=== PATIENT | female | born 1975 | race Caucasian/White ===

== ENCOUNTER 2018-09-08 11:43 | Observation (INO) ==
[2018-09-08 12:03] LABS: Hemoglobin 11.9 gm/dL (12.5-16.0); Mean Cell Volume 89.9 fl (78-100); Mean Corpuscular Hemoglobin 27.4 pg (27-31); Mean Corpuscular Hgb Conc 30.5 g/dl (32-36); Mean Platelet Volume 9.2 fl (8-12.5); Neutrophil % 81.8 % (42-75.0); Platelet Count 274 K/mm3 (150-450); Red Blood Count 4.34 M/mm3 (4.2-5.4); Red Cell Distribution Width 15.1 % (11.5-14.0); White Blood Count 12.2 K/mm3 (4.0-10.5)
--- NOTE | 2018-09-08 12:04 | ERNOTE ---
Dyspnea - General Presenting Symptoms: shortness of breath Time Seen by Provider: 09/08/18 11:43 Source: patient, longterm records Exam Limitations: no limitations - Immun/Allergies/Home Medications Allergies/Adverse Reactions: Allergies amoxicillin Allergy (Verified 09/08/18 12:10) unknown ceftriaxone [From Rocephin] Allergy (Verified 09/08/18 12:10) unknown doxycycline Allergy (Verified 09/08/18 12:10) unknown ertapenem Allergy (Verified 09/08/18 12:21) unknown iodine Allergy (Verified 09/08/18 12:10) unknown levofloxacin [From Levaquin] Allergy (Verified 09/08/18 12:10) unknown prednisone Allergy (Verified 09/08/18 12:10) unknown rifampin Allergy (Verified 09/08/18 12:10) unknown Home Medications: HOME MEDICATIONS Acetaminophen [Tylenol] 650 mg PO Q4H PRN 09/08/18 [Last Taken Unknown] Albuterol Sulfate [Albuterol Sulfate 2.5 MG/0.5ML] 1 vial INHALATION BID PRN 09/08/18 [Last Taken Unknown] Bisacodyl [Laxative Suppository] 10 mg RC DAILY PRN 09/08/18 [Last Taken Unknown] Brimonidine Tartrate [Alphagan-P 0.15% Ophthalmic Solution] 1 drp OPHTHALMIC (EYE) BID 09/08/18 [Last Taken Unknown] Calcium Carbonate [Tums] 1,000 mg PO QID PRN 09/08/18 [Last Taken Unknown] Carbamide Peroxide [Debrox] 1 drp OTIC (EAR) BID 09/08/18 [Last Taken Unknown] Cetirizine HCl [Zyrtec] 10 mg PO DAILY 09/08/18 [Last Taken Unknown] Chlorhexidine Gluconate [Periogard Oral Rinse 0.12%] 15 ml MM BID 09/08/18 [Last Taken Unknown] Famotidine [Pepcid] 20 mg PO BID 09/08/18 [Last Taken Unknown] Ferrous Sulfate [Iron] 325 mg PO DAILY 09/08/18 [Last Taken Unknown] Fluticasone Propionate [Flovent Diskus] 2 sprays INHALATION BID 09/08/18 [Last Taken Unknown] Fluticasone Propionate [Flovent Hfa] 2 puff INHALATION BID 09/08/18 [Last Taken Unknown] Latanoprost/Pf [Latanoprost 0.005% Eye Drop] 1 drp OPHTHALMIC (EYE) HS 09/08/18 [Last Taken Unknown] Montelukast Sodium [Singulair] 10 mg PO DAILY 09/08/18 [Last Taken Unknown] Pantoprazole Sodium 40 mg PO DAILY 09/08/18 [Last Taken Unknown] Pnv No.122/Iron/Folic Acid [ Multi Tablet] 1 ea PO DAILY 09/08/18 [Last Taken Unknown] Polyethylene Glycol 3350 [Miralax] 17 gm PO DAILY PRN 09/08/18 [Last Taken Unknown] Sennosides/Docusate Sodium [Senexon-S Tablet] 2 ea PO HS 09/08/18 [Last Taken Unknown] busPIRone HCL [Buspar] 10 mg PO BID 09/08/18 [Last Taken Unknown] guaiFENesin [Mucinex] 1,200 mg PO DAILY 09/08/18 [Last Taken Unknown] - History of Present Illness Narrative: Patient is a patient at the [facility], has had a trach for a couple of years after being treated for aspiration pneumonia and had been on a vent, recently weaned off. She is on 1liter O@ per [place] at night only. This morning she started to feel short of breath, CXR showed left sided chest opacification. O2sats on EMS arrival were in the low 80's. Patient states that she has slight cough " I am just trying to clear my secretions", doesn't feel short of breath anymore, denies any other symptoms, no chest pain, no URIsymptoms. Influenza at the [facility] was negative She has a h/o spina bifida Treatment [employer]: paramedics, oxygen Initiating event: Denies: upper resp illness, out of meds Frequency of episodes: Reports: occassional episodes Modifying Factors - (Improves): Reports: oxygen Associated Symptoms-Dyspnea: Denies: fever/chills, chest pain/discomfort Prior Treatment: Denies: recently seen, currently on antibiotics Review of Systems - Review of Systems Constitutional: Absent: recent illness, fever, chills ENT: Absent: nose congestion, sore throat Respiratory: Present: shortness of breath, cough Cardiology: Absent: chest pain, palpitations Gastrointestinal/Abdominal: Absent: nausea, vomiting, abdominal pain Genitourinary: Present: no symptoms reported Musculoskeletal: Absent: back pain Neurological: Absent: headache Medical History (Last Updated 09/08/18 @ 12:21 by Melody Adorno MD) Ventilator dependence (Chronic) Unspecified combined systolic (congestive) and diastolic (congestive) heart failure Anxiety Asthma Depression GERD (gastroesophageal reflux disease) Insomnia Spina bifida of lumbar region Surgical History: Surgical History (Last Reviewed 09/08/18 @ 12:21 by Melody Adorno MD) History of back surgery Onset Date: Unknown Family History: Family History (Last Reviewed 09/08/18 @ 12:09 by Vidya Stoddard RN) Other unknown Social History: Preferred Language Ghanaian (Last Updated 06/03/18 @ 10:27 by Stephy Corbett DO) No Social History Section defined Physical Exam - Physical Exam General Appearance: Present: wd/wn, alert, no apparent distress Head Exam: Present: normal inspection Ears, Nose, Throat: Present: normal pharynx Respiratory: Present: no respiratory distress, chest nontender, decreased breath sounds - severely on the left, rhonchi - few on right Cardiovascular/Chest: Present: regular rate, rhythm, no murmur Gastrointestinal/Abdominal: Present: normal bowel sounds Extremity Exam: Present: other - lower extremieties shortened and contracted Neurological Exam: Present: alert, oriented, normal mood/affect Skin Exam: Present: normal color, warm/dry Progress - Results and Orders Patient's Lab Results:: I have reviewed the patient's lab results. - Vital Signs Patient's Vital Signs:: I have reviewed the patient's vital signs. - EKG EKG #1 EKG: NSR - sinus tachycardia, other - no acute changes EKG read: Interp. by me - X-Ray X-Ray #1 X-Ray: chest - 1. Severe hypoventilatory changes.Multifocal pulmonary opacities suggestive of either atelectasis versus potential pneumonia. Interpretation: Reviewed by me - Progress/Reassessment Progress Note-Subjective: 09/08/18 13:30 discussed with aiden Cole to admit for pneumonia patient meets SIRS criteria (WBC, HR, RR), but not criteria for severe sepsis (LA nl) has multiple drug allergies, also sputum culture from 06/2018 was positive for pseudomonas, no information if patient was treated with antibiotics at that time will treat with vancomycin 09/08/18 13:46 antibiotics discussed with Virginie No (pharm) per care center patient was treated with a Zpack in June (started the same day sputum cultures were collected) hence increased risk for pseudomonas and positive pseudomonas culture per protocol patient should be treated with levaquin, aztreonam and gentamicin. As culture resistant to levaquin and patient did not tolerate it well in the past will only treat with the other two Departure Clinical Impression: Acute respiratory failure with hypoxia Pneumonia Qualifiers: Pneumonia type: due to unspecified organism Laterality: bilateral Lung location: unspecified part of lung Qualified Code(s): J18.9 - Pneumonia, unspecified organism Sepsis Qualifiers: Sepsis type: sepsis due to unspecified organism Qualified Code(s): A41.9 - Sepsis, unspecified organism - Departure Disposition: Still a patient Condition: Stable
[2018-09-08 12:22] LABS: ALT 9 U/L (19-67); AST 11 U/L (0-48); Alkaline Phosphatase * 80 U/L (50-170); Anion Gap 11.7 mmol/L (6.8-13.8); BUN/Creatinine Ratio 25.7 (9.0-21.6); Bilirubin, Total 0.3 mg/dL (0.0-1.1); Blood Urea Nitrogen 9 mg/dL (3-23); Ca. Corrected For Albumin 9.2 mg/dL (8.4-10.2); Calcium * 8.7 mg/dL (7.9-10.9); Carbon Dioxide 30.1 mmol/L (24-32.6); Chloride 106 mmol/L (97-106); Glucose * 103 mg/dL (70-110); Potassium 3.8 mmol/L (3.4-4.6); Sodium 144 mmol/L (132-142); Total Protein 6.9 gm/dL (6.2-8.2)
[2018-09-08 12:23] LABS: BNP * 321 pg/mL (5-150); Troponin I Less than 0.017 ng/mL (0.00-0.10)
[2018-09-08] MEDS ORDERED: ALBUTEROL SULFATE 2.5 MG/0.5 ML VIAL.NEB IH ONE (12:27)
[2018-09-08] MEDS: NORMAL SALINE 1,000 ML IV PRN ×2 (13:06→22:46)
[2018-09-08] MEDS ORDERED: GENTAMICIN SULFATE 80 MG in DEXTROSE 5 % IN WATER 100 ML IV ONE ×2 (13:47)
[2018-09-08] MEDS ORDERED: ACETAMINOPHEN 325 MG TABLET PO PRN (13:47)
[2018-09-08] MEDS: AZTREONAM 2 GM in DEXTROSE 5 % IN WATER 100 ML IV SCH ×4 (14:09→22:45)
[2018-09-08] MEDS ORDERED: VANCOMYCIN HCL 1 GM in DEXTROSE 5 % IN WATER 250 ML IV SCH ×2 (14:15)
[2018-09-08] MEDS ORDERED: VANCOMYCIN HCL 1.25 GM in DEXTROSE 5 % IN WATER 250 ML IV SCH ×2 (14:30)
[2018-09-08] MEDS ORDERED: DEXTROSE 5% IV ONE ×4 (14:45)
[2018-09-08] MEDS ORDERED: WATER IV ONE ×4 (14:45)
[2018-09-08] MEDS ORDERED: GENTAMICIN SULFATE IV ONE ×4 (14:45)
[2018-09-08] MEDS ORDERED: VANCOMYCIN HCL 0.75 GM in DEXTROSE 5 % IN WATER 250 ML IV SCH ×2 (15:00)
[2018-09-08] MEDS ORDERED: VANCOMYCIN HCL IV SCH ×2 (15:00)
[2018-09-08] MEDS ORDERED: WATER IV SCH ×2 (15:00)
[2018-09-08] MEDS ORDERED: DEXTROSE 5% IV SCH ×2 (15:00)
--- NOTE | 2018-09-08 16:19 | HP ---
Chief Complaint - Chief Complaint Date of Service: 09/08/18 Time of Service: 16:19 Chief Complaint: SOB History of Present Illness: Ms. French is a 42-year-old female with a past history of spina bifida resulting in her being wheelchair-bound. She is also had medical applications with her breathing, she currently has a trach in place. She presented to the ER this morning for shortness of breath which started over the last couple of days. An x-ray showed possible infiltrates better left lung versus atelectasis. She did have an elevated white count with a left shift. She was admitted to the floor for pneumonia and started on vancomycin, gentamicin, and aztreonam (due to her many allergies to different classes of antibiotics). Her vital signs have been stable but she is requiring 4 L per trach collar to maintain her O2 sats. She does endorse a cough that became productive this morning. She had an ABG that was not concerning, and her CMP was in an acceptable range. She did have a BNP of around 300. Medical History (Last Reviewed 09/08/18 @ 15:34 by Cielo Manzano RN) Ventilator dependence (Resolved) Constipation Glaucoma Tracheostomy in place Unspecified combined systolic (congestive) and diastolic (congestive) heart failure Xerosis cutis Anxiety Asthma Depression GERD (gastroesophageal reflux disease) Insomnia Spina bifida of lumbar region Surgical History: Surgical History (Last Reviewed 09/08/18 @ 15:34 by Cielo Manzano RN) History of back surgery Onset Date: Unknown Family History: Family History (Last Reviewed 09/08/18 @ 15:34 by Cielo Manzano RN) Other unknown Social History: Patient Lives/Resources [facility] Utilized Occupation Disabled Preferred Language Spanish Do you have any druze or Yes: Roman Catholic cultural preference? Smoking Status Never smoker Have you smoked in the past 12 No months Do you dip or chew tobacco No Alcohol Use none Drug Use none (Last Updated 06/03/18 @ 10:27 by Stephy Corbett DO) No Social History Section defined Review Of Systems (GEN) - Review of Systems Generalized/Overall Review: Absent: Chills, Fever Respiratory: Present: Cough, Shortness of Breath, Wheezing Cardiac: Absent: Chest Pain, Edema, Palpitations Abdominal: Absent: Nausea, Vomiting Genitourinary: Present: No Symptoms Reported Musculoskeletal: Present: No Symptoms Reported Immunizations: IMMUNIZATION HX Immunizations Up to Date No History of Influenza Vaccine No Hx Pneumococcal Vaccination More Information Required Allergies/Adverse Reactions: Allergies Allergy/AdvReac Type Severity Reaction Status Date / Time rifampin Allergy Severe hives and Verified 09/09/18 11:40 wheezing ceftriaxone [From Rocephin] Allergy Intermediate hives and Verified 09/09/18 11:40 trouble breathing levofloxacin [From Levaquin] Allergy Intermediate rash Verified 09/09/18 11:40 amoxicillin Allergy Mild RASH Verified 09/09/18 11:40 doxycycline Allergy Mild rash Verified 09/09/18 11:40 iodine Allergy unknown Verified 09/08/18 15:34 prednisone Allergy unknown Verified 09/08/18 15:34 ertapenem AdvReac see comment Verified 09/09/18 11:40 Home Medications: HOME MEDICATIONS Acetaminophen [Tylenol] 650 mg PO Q4H PRN 09/08/18 [Last Taken Unknown] Albuterol Sulfate [Albuterol Sulfate 2.5 MG/0.5ML] 1 vial INHALATION BID PRN 09/08/18 [Last Taken Unknown] Bisacodyl [Laxative Suppository] 10 mg RC DAILY PRN 09/08/18 [Last Taken Unknown] Brimonidine Tartrate [Alphagan-P 0.15% Ophthalmic Solution] 1 drp OPHTHALMIC (EYE) BID 09/08/18 [Last Taken Unknown] Calcium Carbonate [Tums] 1,000 mg PO QID PRN 09/08/18 [Last Taken Unknown] Carbamide Peroxide [Debrox] 1 drp OTIC (EAR) BID 09/08/18 [Last Taken Unknown] Cetirizine HCl [Zyrtec] 10 mg PO DAILY 09/08/18 [Last Taken Unknown] Chlorhexidine Gluconate [Periogard Oral Rinse 0.12%] 15 ml MM BID 09/08/18 [Last Taken Unknown] Famotidine [Pepcid] 20 mg PO BID 09/08/18 [Last Taken Unknown] Ferrous Sulfate [Iron] 325 mg PO DAILY 09/08/18 [Last Taken Unknown] Fluticasone Propionate [Flovent Diskus] 2 sprays INHALATION BID 09/08/18 [Last Taken Unknown] Fluticasone Propionate [Flovent Hfa] 2 puff INHALATION BID 09/08/18 [Last Taken Unknown] Latanoprost/Pf [Latanoprost 0.005% Eye Drop] 1 drp OPHTHALMIC (EYE) HS 09/08/18 [Last Taken Unknown] Montelukast Sodium [Singulair] 10 mg PO DAILY 09/08/18 [Last Taken Unknown] Pantoprazole Sodium 40 mg PO DAILY 09/08/18 [Last Taken Unknown] Pnv No.122/Iron/Folic Acid [ Multi Tablet] 1 ea PO DAILY 09/08/18 [Last Taken Unknown] Polyethylene Glycol 3350 [Miralax] 17 gm PO DAILY PRN 09/08/18 [Last Taken Unknown] Sennosides/Docusate Sodium [Senexon-S Tablet] 2 ea PO HS 09/08/18 [Last Taken Unknown] busPIRone HCL [Buspar] 10 mg PO BID 09/08/18 [Last Taken Unknown] guaiFENesin [Mucinex] 1,200 mg PO DAILY 09/08/18 [Last Taken Unknown] Exam - Exam Vital Signs: Vital Signs - Last Taken Temp 36.8 C 09/08/18 14:47 Pulse 84 09/08/18 14:47 Resp 20 09/08/18 14:47 BP 123/71 09/08/18 14:47 Pulse Ox 93 09/08/18 14:47 Constitutional: Present: Alert, Oriented x3, Morbidly obese Eye Exam: bilateral eye: normal inspection, EOMI Neck: Present: non-tender, supple, other - trach, clean and operational Respiratory: Present: decreased breath sounds - bases. Absent: respiratory distress Cardiovascular/Chest: Present: regular rate, rhythm, no chest tenderness Abdomen: Present: Normal bowel sounds, soft, nontender /Rectal: Present: Exam deferred Skin Exam: Present: normal color, warm/dry Diagnostic Studies: Abnormal Lab Results 09/08/18 09/08/18 09/08/18 Range/Units 11:50 11:50 13:08 WBC 12.2 H (4.0-10.5) K/mm3 Hgb 11.9 L (12.5-16.0) gm/dL MCHC 30.5 L (32-36) g/dl RDW 15.1 H (11.5-14.0) % Immature Gran # (Auto) 0.04 H (0.000-0.0310) K/mm3 Neutrophils % 81.8 H (42-75.0) % Lymphocytes % 12.2 L (20-51) % Neutrophils # 10.0 H (1.3-6.0) K/mm3 Lymphocytes # 1.49 L (1.5-3.5) k/mm3 pCO2 45.3 H (32.0-45.0) mmHg Total CO2 27.3 H (19.0-24.0) mmol/L Sodium 144 H (132-142) mmol/L Plasma Sodium 144 H (130-142) mmol/L Creatinine 0.35 L (0.4-1.4) mg/dL Est GFR (Non-Af Amer) 217 H D (60-130) mL/min BUN/Creatinine Ratio 25.7 H (9.0-21.6) ALT 9 L (19-67) U/L B-Natriuretic Peptide 321 H (5-150) pg/mL Albumin 3.0 L (3.4-5.0) gm/dl Laboratory Results WBC 12.2 K/mm3 (4.0-10.5) H 09/08/18 11:50 RBC 4.34 M/mm3 (4.2-5.4) 09/08/18 11:50 Hgb 11.9 gm/dL (12.5-16.0) L 09/08/18 11:50 Hct 39.0 % (37.0-47.0) 09/08/18 11:50 MCV 89.9 fl (78-100) 09/08/18 11:50 MCH 27.4 pg (27-31) 09/08/18 11:50 MCHC 30.5 g/dl (32-36) L 09/08/18 11:50 RDW 15.1 % (11.5-14.0) H 09/08/18 11:50 Plt Count 274 K/mm3 (150-450) 09/08/18 11:50 MPV 9.2 fl (8-12.5) 09/08/18 11:50 Immature Gran % (Auto) 0.30 % (0.001-0.429) 09/08/18 11:50 Immature Gran # (Auto) 0.04 K/mm3 (0.000-0.0310) H 09/08/18 11:50 Neutrophils % 81.8 % (42-75.0) H 09/08/18 11:50 Lymphocytes % 12.2 % (20-51) L 09/08/18 11:50 Monocytes % 4.7 % (0.0-9) 09/08/18 11:50 Eosinophils % 0.8 % (0.0-3.0) 09/08/18 11:50 Basophils % 0.2 % (0.0-1.0) 09/08/18 11:50 Nucleated RBC % 0.0 k/mm3 (0-1) 09/08/18 11:50 Neutrophils # 10.0 K/mm3 (1.3-6.0) H 09/08/18 11:50 Lymphocytes # 1.49 k/mm3 (1.5-3.5) L 09/08/18 11:50 Monocytes # 0.6 k/mm3 (0.0-1.0) 09/08/18 11:50 Eosinophils # 0.1 k/mm3 (0.0-0.7) 09/08/18 11:50 Absolute Basophils 0.0 k/mm3 (0.0-0.1) 09/08/18 11:50 pCO2 45.3 mmHg (32.0-45.0) H 09/08/18 13:08 pO2 87.6 mmHg (83.0-108.0) 09/08/18 13:08 HCO3 25.9 mmol/L (21.0-28.0) 09/08/18 13:08 Total CO2 27.3 mmol/L (19.0-24.0) H 09/08/18 13:08 Base Excess 0.4 mmol/L (-2.0-3.0) 09/08/18 13:08 ABG pH 7.38 (7.35-7.45) 09/08/18 13:08 ABG O2 Sat (Measured) 96.4 % (94.0-98.0) 09/08/18 13:08 Sodium 144 mmol/L (132-142) H 09/08/18 11:50 Plasma Sodium 144 mmol/L (130-142) H 09/08/18 11:50 Potassium 3.8 mmol/L (3.4-4.6) 09/08/18 11:50 Chloride 106 mmol/L (97-106) 09/08/18 11:50 Carbon Dioxide 30.1 mmol/L (24-32.6) 09/08/18 11:50 Anion Gap 11.7 mmol/L (6.8-13.8) 09/08/18 11:50 BUN 9 mg/dL (3-23) 09/08/18 11:50 Creatinine 0.35 mg/dL (0.4-1.4) L 09/08/18 11:50 Est GFR (Non-Af Amer) 217 mL/min (60-130) H D 09/08/18 11:50 BUN/Creatinine Ratio 25.7 (9.0-21.6) H 09/08/18 11:50 Random Glucose 103 mg/dL (70-110) 09/08/18 11:50 Lactic Acid, Venous 0.5 mmol/L (0.4-2.0) 09/08/18 11:50 Calcium 8.7 mg/dL (7.9-10.9) 09/08/18 11:50 Calcium Adj for Albumin 9.2 mg/dL (8.4-10.2) 09/08/18 11:50 Total Bilirubin 0.3 mg/dL (0.0-1.1) 09/08/18 11:50 AST 11 U/L (0-48) 09/08/18 11:50 ALT 9 U/L (19-67) L 09/08/18 11:50 Alkaline Phosphatase 80 U/L (50-170) 09/08/18 11:50 Troponin I Less than 0.017 ng/mL (0.00-0.10) 09/08/18 11:50 B-Natriuretic Peptide 321 pg/mL (5-150) H 09/08/18 11:50 Total Protein 6.9 gm/dL (6.2-8.2) 09/08/18 11:50 Albumin 3.0 gm/dl (3.4-5.0) L 09/08/18 11:50 Assessment/Plan - Narrative Narrative: Patient placed in observation for pneumonia treatment. Discussed in detail with [facility] pharmacist who helped adjust her 3 antibiotics that she is currently on. Continue oxygen via trach collar to maintain sats between 94-97%. Gent peak ordered (random) as well as a bank trough to be drawn 1 hour prior to her fourth dose of vancomycin. Will discuss dosing again with pharmacy tomorrow when they are present in the hospital. Will double check allergies tomorrow to see if there is anything that can be used to de-escalate her tx. - Assessment/Plan (1) Pneumonia Problem: Acute Qualifiers: Pneumonia type: due to unspecified organism Laterality: bilateral Lung location: unspecified part of lung Qualified Code(s): J18.9 - Pneumonia, unspecified organism (2) Ventilator dependence Problem: Resolved (3) Spina bifida Problem: Acute
[2018-09-08] MEDS ORDERED: VANCOMYCIN HCL 1.25 GM in NORMAL SALINE 250 ML IV SCH (18:30)
[2018-09-08] MEDS ORDERED: CALCIUM CARBONATE 500 MG TAB.CHEW PO PRN (20:09)
[2018-09-08] MEDS ORDERED: ALBUTEROL SULFATE 2.5 MG/0.5 ML VIAL.NEB IH PRN (20:09)
[2018-09-08] MEDS ORDERED: ACETAMINOPHEN 650 MG TABLET PO PRN (20:38)
[2018-09-08] MEDS ORDERED: POLYETHYLENE GLYCOL 3350 119 GM BTL PO PRN (20:46)
[2018-09-08] MEDS ORDERED: SENNOSIDES/DOCUSATE SODIUM 1 TAB TABLET PO SCH ×2 (21:00)
[2018-09-08] MEDS ORDERED: FLUTICASONE PROPIONATE Inhalation SCH (21:00)
[2018-09-08] MEDS: BUDESONIDE 0.5 MG/2 ML VIAL.NEB IH SCH (21:01)
[2018-09-08] MEDS: busPIRone HCL 5 MG TABLET PO SCH (21:20)
[2018-09-08] MEDS: FAMOTIDINE 20 MG TABLET PO SCH (21:20)
[2018-09-08] MEDS ORDERED: GENTAMICIN SULFATE LEVEL XX ONE (21:25)
[2018-09-09] MEDS: NORMAL SALINE 1,000 ML IV PRN (05:32)
[2018-09-09] MEDS: AZTREONAM 2 GM in DEXTROSE 5 % IN WATER 100 ML IV SCH ×2 (05:32)
[2018-09-09] MEDS: BUDESONIDE 0.5 MG/2 ML VIAL.NEB IH SCH (05:59)
[2018-09-09] MEDS ORDERED: VANCOMYCIN HCL 1 GM in DEXTROSE 5 % IN WATER 250 ML IV SCH ×2 (06:30)
[2018-09-09] MEDS ORDERED: MONTELUKAST SODIUM 10 MG TABLET PO SCH (09:00)
[2018-09-09] MEDS ORDERED: PANTOPRAZOLE SODIUM 40 MG TABLET.EC PO SCH (09:00)
[2018-09-09] MEDS ORDERED: FERROUS SULFATE 325 MG TABLET PO SCH (09:00)
[2018-09-09] MEDS: busPIRone HCL 5 MG TABLET PO SCH (09:02)
[2018-09-09] MEDS: FAMOTIDINE 20 MG TABLET PO SCH (09:03)
[2018-09-09] MEDS ORDERED: POLYETHYLENE GLYCOL 3350 119 GM BTL PO PRN (09:45)
[2018-09-09] MEDS ORDERED: AZITHROMYCIN 250 MG TABLET PO ONE (12:16)
[2018-09-09] MEDS ORDERED: AZITHROMYCIN 250 MG TABLET ONE (14:11)
--- NOTE | 2018-09-09 14:11 | DS ---
(1) Pneumonia Problem: Ruled-out Qualifiers: Pneumonia type: due to unspecified organism Laterality: bilateral Lung location: unspecified part of lung Qualified Code(s): J18.9 - Pneumonia, unspecified organism (2) Spina bifida Problem: Chronic Description of Stay: 42-year-old female with history of spina bifida, wheelchair-bound. History of being on a ventilator through the tracheostomy for chronic hypoxia shortness of breath. She has been weaned off the ventilator over the last few months and was again noted at the trach removed when she presented to the hospital for 3 days of shortness of breath. X-ray showed possible pneumonia versus atelectasis. She had a mildly elevated white count at 12 with a left shift. She denied fevers chills, cough. She did endorse shortness of breath and was slightly hypoxic at 89% on room air. She normally does not require O2 administration during the day but uses 1-2 L via trach collar nights. While he re her oxygen returned to normal with supplemental administration of O2. She initially was started on vancomycin, gentamicin, and aztreonam. These were de- escalated on the day of discharge to just azithromycin as it was unclear as to whether or not she really had pneumonia versus atelectasis which is what the chest x-ray him today. Due to her clinical picture it did not appear to be an infectious process but will send her back to the [place] on azithromycin for 5 days. Her oxygen saturation return back to normal after being weaned down from the 4 L that she really was brought in on which she tolerated well. We will have her follow-up with her PCP in the next week. Medicines to call if she has any fevers, cough, worsening shortness of breath, or any other signs of worsening infection. Procedures Performed: none Results and Findings: Pending Mircobiology Results 09/08/18 12:40 Blood Blood Culture - Preliminary NO GROWTH 24 HOURS 09/08/18 11:50 Blood Blood Culture - Preliminary NO GROWTH 24 HOURS 09/08/18 16:08 Expectorate Sputum Sputum Culture - Preliminary No Pathogens Isolated Lab Pending Results 09/08/18 11:50: WBC 12.2 H, RBC 4.34, Hgb 11.9 L, Hct 39.0, MCV 89.9, MCH 27.4, MCHC 30.5 L, RDW 15.1 H, Plt Count 274, MPV 9.2, Immature Gran % (Auto) 0.30, Immature Gran # (Auto) 0.04 H, Neutrophils % 81.8 H, Lymphocytes % 12.2 L, Monocytes % 4.7, Eosinophils % 0.8, Basophils % 0.2, Nucleated RBC % 0.0, Neutrophils # 10.0 H, Lymphocytes # 1.49 L, Monocytes # 0.6, Eosinophils # 0.1, Absolute Basophils 0.0 09/08/18 11:50: Sodium 144 H, Plasma Sodium 144 H, Potassium 3.8, Chloride 106, Carbon Dioxide 30.1, Anion Gap 11.7, BUN 9, Creatinine 0.35 L, Est GFR (Non-Af Amer) 217 H D, BUN/Creatinine Ratio 25.7 H, Random Glucose 103, Calcium 8.7, Calcium Adj for Albumin 9.2, Total Bilirubin 0.3, AST 11, ALT 9 L, Alkaline Phosphatase 80, Troponin I Less than 0.017, B-Natriuretic Peptide 321 H, Total Protein 6.9, Albumin 3.0 L 09/08/18 11:50: Lactic Acid, Venous 0.5 09/08/18 13:08: pCO2 45.3 H, pO2 87.6, HCO3 25.9, Total CO2 27.3 H, Base Excess 0.4, ABG pH 7.38, ABG O2 Sat (Measured) 96.4 09/08/18 21:44: Random Gentamicin 4.1 Discharge Location: [facility] Disposition: Intermediate Care Facility ICF Condition: Stable Level of Care: ICF Discharge Activity: Activity as tolerated Discharge Diet: General/regular food Prescriptions (Any new or edited meds): Azithromycin 250 mg PO DAILY #4 tablet Complete Home Medications List: Complete Home Medication List: Acetaminophen [Tylenol] 650 mg PO Q4H PRN 09/08/18 Albuterol Sulfate [Albuterol Sulfate 2.5 MG/0.5ML] 1 vial INHALATION BID PRN 09/08/18 Bisacodyl [Laxative Suppository] 10 mg RC DAILY PRN 09/08/18 Brimonidine Tartrate [Alphagan-P 0.15% OPHTHALMIC SOLUTION] 1 drp OPHTHALMIC (EYE) BID 09/08/18 Calcium Carbonate [Tums] 1,000 mg PO QID PRN 09/08/18 Carbamide Peroxide [Debrox] 1 drp OTIC (EAR) BID 09/08/18 Cetirizine HCl [Zyrtec] 10 mg PO DAILY 09/08/18 Chlorhexidine Gluconate [Periogard Oral Rinse 0.12%] 15 ml MM BID 09/08/18 Famotidine [Pepcid] 20 mg PO BID 09/08/18 Ferrous Sulfate [Iron] 325 mg PO DAILY 09/08/18 Fluticasone Propionate [Flovent Diskus] 2 sprays INHALATION BID 09/08/18 Fluticasone Propionate [Flovent Hfa] 2 puff INHALATION BID 09/08/18 Latanoprost/Pf [Latanoprost 0.005% Eye Drop] 1 drp OPHTHALMIC (EYE) HS 09/08/18 Montelukast Sodium [Singulair] 10 mg PO DAILY 09/08/18 Pantoprazole Sodium 40 mg PO DAILY 09/08/18 Pnv No.122/Iron/Folic Acid [ Multi Tablet] 1 ea PO DAILY 09/08/18 Polyethylene Glycol 3350 [Miralax] 17 gm PO DAILY PRN 09/08/18 Sennosides/Docusate Sodium [Senexon-S Tablet] 2 ea PO HS 09/08/18 busPIRone HCL [Buspar] 10 mg PO BID 09/08/18 guaiFENesin [Mucinex] 1,200 mg PO DAILY 09/08/18 Azithromycin 250 mg PO DAILY #4 tablet 09/09/18
[2018-09-09 15:34] VITALS: BP 134/76
[2018-09-10] MEDS ORDERED: VANCOMYCIN HCL LEVEL XX ONE (18:00)
== END 2018-09-09 16:10 ==
LOC: ER 11:43 → MS 11:43
PROVIDERS: ADMIT Family Medicine; ATTEND Family Medicine
CPT/HCPCS: 36415; 36600; 71010; 71045; 80053; 80170; 82803; 83519; 83605; 83880; 84484; 85025; 87040; 87070; 87081; 93005; 94640; 94664; 94760; 96365; 96366; 99285; G0378